=== PATIENT | female | born 1945 | race Caucasian/White ===

== ENCOUNTER 2018-05-23 01:25 | Emergency (ER) | payer OTHER ==
[2018-05-23 01:33] VITALS: BP 143/76
[2018-05-23] MEDS ORDERED: ONDANSETRON 4 MG/2 ML VIAL IVP ONE (02:17)
--- NOTE | 2018-05-23 02:17 | EDPHY ---
H & P Stated Complaint: NAUSEA,COLD SWEATS/HAD FAST HEART BEAT ON AIRPLANE TODAY Time Seen by Provider: 05/23/18 02:06 HPI/ROS: Chief Complaint: Palpitations, nausea HPI: A 73-year-old woman with a history of hypertrophic cardiomyopathy was on a flight from [facility] to [place] yesterday when she began feeling her heart pounding and palpitations. They put her on oxygen for the duration the flight. On arrival to [place] 12 hr ago she was met by paramedics and had a normal ECG. She decided not to go to the hospital at that time. This morning she woke up with nausea and general malaise. No vomiting. No chest pain. No shortness of breath. No lightheadedness or fainting. No leg pain or swelling. No cough. ROS: 10 systems were reviewed and were negative except those elements noted in the HPI. PMH: Hypertrophic cardiomyopathy Social History: No smoking, no alcohol, no recreational drug use Family History: non-contributory Physical Exam: Gen: Awake, Alert, No Distress HEENT: Nose: no rhinorrhea Eyes: PERRLA, EOMI Mouth: Moist mucosa Neck: Supple, no JVD Chest: nontender, lungs clear to auscultation Heart: S1, S2 normal, no murmur Abd: Soft, non-tender, no guarding Back: no CVA tenderness, no midline tenderness Ext: no edema, non-tender Skin: no rash Neuro: CN II-XII intact, Sensation grossly intact, Strength 5/5 in bilateral upper and lower extremities - Personal History Current Tetanus Diphtheria and Acellular Pertussis (TDAP): Yes - Medical/Surgical History Hx Asthma: No Hx Chronic Respiratory Disease: No Hx Diabetes: No Hx Cardiac Disease: Yes Hx Renal Disease: No Hx Cirrhosis: No Hx Alcoholism: No Hx HIV/AIDS: No Hx Splenectomy or Spleen Trauma: No Other PMH: ECTOPIC OBSTRUCTIVE CARDIOMYOPATHY - Social History Smoking Status: Never smoked Constitutional: Initial Vital Signs Temperature (C) 36.4 C 05/23/18 01:30 Heart Rate 69 05/23/18 01:30 Respiratory Rate 16 05/23/18 01:30 Blood Pressure 143/76 H 05/23/18 01:30 O2 Sat (%) 97 05/23/18 01:30 O2 Delivery Mode Room Air Allergies/Adverse Reactions: ciprofloxacin [From Cipro] Allergy (Verified 05/23/18 01:35) gemifloxacin Allergy (Verified 05/23/18 01:35) levofloxacin Allergy (Verified 05/23/18 01:35) moxifloxacin Allergy (Verified 05/23/18 01:35) norfloxacin Allergy (Verified 05/23/18 01:35) ofloxacin Allergy (Verified 05/23/18 01:35) Sulfa (Sulfonamide Antibiotics) Allergy (Verified 05/23/18 01:35) Home Medications: Medication Instructions Recorded Metoprolol Succinate 05/23/18 Medical Decision Making - Diagnostics EKG Interpretation: ECG time 1:47 a.m., sinus rhythm with a rate of 67, normal axis, normal intervals, no acute ST or T-wave changes. Impression: Normal ECG. ED Course/Re-evaluation: 73-year-old woman with a history of hypertrophic cardiomyopathy had an episode of some palpitations while on the airplane flight. She has normal vital signs here. Her D-dimer is negative. Troponin is negative. Symptoms began over 12 hr ago. ECG is nonischemic. Laboratory evaluations including flu test are completely normal. Blood tests are normal. No evidence of acute infectious process. No evidence of acute coronary syndrome. She is feeling well. Plan will be to discharge have her follow up with primary care physician, return for any concerns. - Data Points Laboratory Results: Laboratory Results 05/23/18 02:30 05/23/18 02:30 05/23/18 05/23/18 05/23/18 02:40 02:35 02:30 WBC RBC Hgb Hct MCV MCH MCHC RDW Plt Count MPV Neut % (Auto) Lymph % (Auto) [place] % (Auto) Eos % (Auto) Baso % (Auto) Nucleat RBC Rel Count Absolute Neuts (auto) Absolute Lymphs (auto) Absolute Monos (auto) Absolute Eos (auto) Absolute Basos (auto) Absolute Nucleated RBC Immature Gran % Immature Gran # D-Dimer < 0.27 ug/mLFEU ug/mLFEU (0.00-0.50) Sodium Potassium Chloride Carbon Dioxide Anion Gap BUN Creatinine Estimated GFR Glucose Calcium POC Troponin I 0.00 ng/mL ng/mL (0.00-0.08) Nasal Influenza A PCR NEGATIVE FOR FLU A (NEGATIVE) Nasal Influenza B PCR NEGATIVE FOR FLU B (NEGATIVE) 05/23/18 05/23/18 02:30 02:30 WBC 5.09 10^3/uL 10^3/uL (3.80-9.50) RBC 4.64 10^6/uL 10^6/uL (4.18-5.33) Hgb 14.1 g/dL g/dL (12.6-16.3) Hct 40.9 % % (38.0-47.0) MCV 88.1 fL fL (81.5-99.8) MCH 30.4 pg pg (27.9-34.1) MCHC 34.5 g/dL g/dL (32.4-36.7) RDW 13.0 % % (11.5-15.2) Plt Count 229 10^3/uL 10^3/uL (150-400) MPV 10.0 fL fL (8.7-11.7) Neut % (Auto) 68.1 % % (39.3-74.2) Lymph % (Auto) 24.2 % % (15.0-45.0) [place] % (Auto) 6.1 % % (4.5-13.0) Eos % (Auto) 0.8 % % (0.6-7.6) Baso % (Auto) 0.6 % % (0.3-1.7) Nucleat RBC Rel Count 0.0 % % (0.0-0.2) Absolute Neuts (auto) 3.47 10^3/uL 10^3/uL (1.70-6.50) Absolute Lymphs (auto) 1.23 10^3/uL 10^3/uL (1.00-3.00) Absolute Monos (auto) 0.31 10^3/uL 10^3/uL (0.30-0.80) Absolute Eos (auto) 0.04 10^3/uL 10^3/uL (0.03-0.40) Absolute Basos (auto) 0.03 10^3/uL 10^3/uL (0.02-0.10) Absolute Nucleated RBC 0.00 10^3/uL 10^3/uL (0-0.01) Immature Gran % 0.2 % % (0.0-1.1) Immature Gran # 0.01 10^3/uL 10^3/uL (0.00-0.10) D-Dimer Sodium 144 mEq/L mEq/L (135-145) Potassium 3.8 mEq/L mEq/L (3.3-5.0) Chloride 109 mEq/L mEq/L (97-110) Carbon Dioxide 27 mEq/l mEq/l (22-31) Anion Gap 8 mEq/L mEq/L (6-14) BUN 15 mg/dL mg/dL (7-23) Creatinine 0.6 mg/dL mg/dL (0.6-1.0) Estimated GFR > 60 Glucose 104 mg/dL H mg/dL (70-100) Calcium 9.2 mg/dL mg/dL (8.5-10.4) POC Troponin I Nasal Influenza A PCR Nasal Influenza B PCR Medications Given: Discontinued Medications Ondansetron HCl (Zofran) 4 mg IVP EDNOW ONE Stop: 05/23/18 02:18 Last Admin: 05/23/18 02:27 Dose: 4 mg Point of Care Test Results: Chemistry 05/23/18 02:40 POC Troponin I 0.00 ng/mL ng/mL (0.00-0.08) Departure - Departure Disposition: Home, Routine, Self-Care Clinical Impression: Palpitations, Nausea Condition: Good Instructions: Heart Palpitations (ED), Acute Nausea and Vomiting (ED) Additional Instructions: Follow up with primary care physician in 2-3 days for further evaluation. Return to the emergency department for increasing chest pain, fainting, shortness of breath, uncontrolled fevers or chills, or any other concerns. Referrals: NONE *PRIMARY CARE P,. [Primary Care Provider] - As per Instructions
[2018-05-23 02:41] LABS: PLATELET COUNT 229 10^3/uL (150-400)
--- NOTE | 2018-05-23 07:39 | CPEKG ---
Test Reason : OPEN Blood Pressure : / mmHG Vent. Rate : 067 BPM Atrial Rate : 067 BPM P-R Int : 187 ms QRS Dur : 104 ms QT Int : 436 ms P-R-T Axes : 069 066 058 degrees QTc Int : 461 ms Sinus rhythm Confirmed by Saul Strange [id number] on 05/23/2018 7:38:42 AM Referred By: Confirmed By:Saul Strange
== END 2018-05-23 03:39 | disposition home or self-care (01) ==
DX: R00.2 Palpitations (principal); R11.0 Nausea; I42.1 Obstructive hypertrophic cardiomyopathy
CPT/HCPCS: 93005; 96374; 99284; J2405; 84484-PO